=== PATIENT | male | born 1960 | race Caucasian/White ===

== ENCOUNTER 2016-07-18 11:20 | Emergency (ER) ==
[2016-07-18 12:08] LABS: MANUAL DIFF NEEDED? NO
[2016-07-18 12:14] LABS: BASO% 0.2 % (0.0-0.8); EOS# 0.03 X1000 (0.0-0.7); EOS% 0.3 % (0.0-10.0); HEMATOCRIT 51.1 % (42.0-52.0); HEMOGLOBIN 17.5 g/dL (14.0-18.0); IMM GRAN# 0.01 X1000 (0.0-0.04); IMM GRAN% 0.1 % (0.0-0.5); LYMPH# 1.97 X1000 (1.2-3.4); LYMPH% 17.7 % (20.5-51.1); MCH 30.4 PG (27-31); MCHC 34.2 g/dL (33-37); MCV 88.9 FL (81-99); MONO# 0.91 X1000 (0.11-0.59); MONO% 8.2 % (1.7-9.3); MPV 9.9 FL (7.4-10.4); NEUT% 73.5 % (42.2-75.2); PLT 388 X1000 (130-400); RBC 5.75 XMIL (4.7-6.1)
[2016-07-18 12:33] LABS: AGAP 14; ALBUMIN 4.7 g/dL (3.5-5.0); ALKALINE PHOSPHATASE 67 U/L (32-122); AMYLASE 44 U/L (20-200); BUN 25 mg/dL (8-22); CALCIUM 9.3 mg/dL (8.8-10.2); CHLORIDE 95 mmol/L (98-107); COSMO 273; GOT 17 U/L (10-34); GPT 21 U/L (10-44); LIPASE 19 U/L (13-60); SODIUM 133 mmol/L (136-145); TCO2 24 mmol/L (25-35); TOTAL PROTEIN 7.8 g/dL (6.3-8.3)
--- NOTE | 2016-07-18 12:43 | PROVIDER DOCUMENTATION ---
HPI-General Adult - General Chief Complaint: Abdominal Pain Stated Complaint: ABD PAIN Time Seen by Provider: 07/18/16 11:40 Source: patient Allergies/Adverse Reactions: Patient Allergies Allergy/AdvReac Type Severity Reaction Status Date / Time No Known Allergies Allergy Verified 07/18/16 11:30 - History of Present Illness -Gen Adult Nature of Presenting Problems: Pt. is 55 yom that presents with c/o abd pain with N/V for 5 days. Pt. reports he hasn't eaten or had any drink nor had a BM in 5 days. Pt. states he has a history of gastric ulcers. Pt. denies any fever or other symptoms. Location of Pain/Injury: reports: abdomen. denies: head, face, mouth, neck, chest, upper extremity, hand(s), back, pelvis, genitalia, lower extremity, feet , upper body, lower body, generalized Pain Radiation: reports: no radiation Quality of Pain: reports: aching. denies: burning, cramping, dull, fullness, indigestion, pressure, sharp, stabbing, tearing, throbbing, tightness Severity: reports: moderate. denies: mild, severe Onset/Duration: reports: gradual, 5 days ago Timing: reports: still present, constant. denies: improving, gone now, resolved prior to arrival, intermittent, changing over time, getting worse Context/Activities at Onset: reports: none. denies: recent emotional stress, recent physical stress, recent trauma history, possible bad food, cold exposure , out of country travel Modifying Factors: improves with: nothing Associated Symptoms: reports: nausea, vomiting. denies: anxiety, arm pain, back /neck pain, chest pain, constipation, cough, diaphoresis, diarrhea, dizziness, EENT symptoms, fatigue, fever/chills, genitourinary problems, headaches, heartburn, joint pain, loss of appetite, malaise, muscle aches, sinus congestion /drainage, rash, seizure, shortness of breath, sensory/motor loss, pain with inspiration, swelling/mass in abdomen, syncope, weakness, trouble walking Similar Symptoms Previously?: Yes Recently seen or treated by another doctor?: No Review of Systems - Adult - REVIEW OF SYSTEMS - ADULT Constitutional: reports: see HPI. denies: chills, fever, fatique Eyes: reports: see HPI. denies: discharge, blurred vision, double vision Ears, Nose, Mouth & Throat: reports: see HPI. denies: ear discharge, ear pain, sinus problem, nose pain, loose teeth, mouth/dental pain Cardiovascular: reports: see HPI. denies: chest pain, irregular heart rate, orthopnea Respiratory: reports: see HPI. denies: chronic cough, cough, dyspnea on exertion, pleurisy, shortness of breath, wheezing Gastrointestinal: reports: see HPI, abdominal pain, nausea, vomiting. denies: hematemesis, diarrhea, difficulty swallowing Genitourinary: reports: see HPI. denies: dysuria, discharge, flank pain, hematuria, hesitency, urgency Musculoskeletal: reports: see HPI. denies: bone pain, back pain, joint pain, muscle aches, neck pain Integumentary: reports: see HPI. denies: hives, hair loss, itching, rash, skin thickening Neurological: reports: see HPI. denies: ataxia, headache/migraines, paresthesia , seizure, tremors Psychiatric: reports: see HPI. denies: anxiety, depression, emotional problems , insomnia, panic attacks, suicidal thoughts Past History - Adult - PAST MEDICAL HISTORY-ADULT Review of Records: reports: Old Records Reviewed, Nursing Assessment Review, Medications Reviewed, Social history reviewed & non-contributory. Physical Exam-General - PHYSICAL EXAM-ADULT Initial Vital Signs Reviewed: Yes - CONSTITUTIONAL General Appearance: alert, mild distress, thin. negative: obese, anxious, lethargic, slow to respond, obtunded, combative - EYES Eyes: PERRL/EOMI, pink conjunctivae. negative: conjuctival exudate, scleral icterus, subconjunctival hemorrhage - HEAD, EARS, NOSE, MOUTH & THROAT HENMT: normocephalic/atraumatic, moist mucous membranes. negative: angioedema, frontal tenderness, maxillary tenderness - NECK Neck: non-tender, full range of motion, supple, normal inspection. negative: lymphadenopathy, trachial deviation, thyromegaly - RESPIRATORY Respiratory: lungs clear, normal breath sounds. negative: crackles, rales, rhonchi, stridor, wheezing - CARDIOVASCULAR Cardiovascular: normal peripheral pulses, regular rate, rhythm, no edema, no JVD , no murmur. negative: friction rub, irregularly irregular - CHEST (BREASTS) Chest/Breast: deferred - GASTROINTESTINAL (ABDOMEN) Abdominal Exam: normal bowel sounds, soft, tenderness (diffusely tender). negative: hernia, mass - GENITOURINARY Male Genitalia: deferred Rectal Exam: deferred Hemoccult Exam: deferred - LYMPHATIC Lymphatic: no adenopathy. negative: axilla node tender, cervical node tenderness - MUSCULOSKELETAL Back Exam: normal inspection, no CVA tenderness, no vertebral tenderness. negative: ecchymosis, muscle spasm, vertebral tenderness Extremity: normal range of motion, non-tender, normal gait, normal inspection. negative: erythema, pedal edema, tenderness Peripheral Pulses: radial (R): 2+, radial (L): 2+ - SKIN Integumentary: normal color, normal turgor, warm/dry. negative: cyanosis, diaphoresis, ecchymosis, erythema, jaundice, mottled, pallor, petechiae, purpura , rash, swelling, tenderness - NEUROLOGIC Neurologic: grossly normal, no motor/sensory deficits. negative: aphasia, facial droop, focal weakness, motor weakness, sensory deficit - PSYCHIATRIC Psych/Mental Status: normal mood/affect, normal thought content, normal thought process, oriented x 3. negative: anxious, paranoid, tearful Progress - PLAN OF CARE/RESULTS Progress/Plan/Lab Results: Discussed results and plan of care with patient. Patient agrees with plan and verbalizes understanding. Vital Signs Temp Pulse Pulse Pulse Pulse Resp BP 07/18/16 11:40 68 75 59 L 07/18/16 11:27 97.8 F 78 18 121/86 BP BP BP 07/18/16 11:40 139/100 134/95 138/80 07/18/16 11:27 No Known Allergies Allergy (Verified 07/18/16 11:30) No Home Medications 07/18/16 Dietary Diet NPO Start SatJul 18 1130 Laboratory 07/18/16 07/18/16 07/18/16 13:00 12:00 12:00 WBC 11.16 H RBC 5.75 Hgb 17.5 Hct 51.1 MCV 88.9 MCH 30.4 MCHC 34.2 RDW Std Deviation 12.9 Plt Count 388 MPV 9.9 Immature Gran % (Auto) 0.1 Neut % (Auto) 73.5 Lymph % (Auto) 17.7 L [place] % (Auto) 8.2 Eos % (Auto) 0.3 Baso % (Auto) 0.2 Immature Gran # (Auto) 0.01 Neut # (Auto) 8.22 H Lymph # (Auto) 1.97 [place] # (Auto) 0.91 H Eos # (Auto) 0.03 Baso # (Auto) 0.02 Sodium 133 L Potassium 4.0 Chloride 95 L Carbon Dioxide 24 L Anion Gap 14 BUN 25 H Creatinine 0.8 Estimated GFR/1.73 m2 > 60 BUN/Creatinine Ratio 31 Glucose 143 H Calculated Osmolality 273 Calcium 9.3 Total Bilirubin 0.90 AST 17 ALT 21 Alkaline Phosphatase 67 Total Protein 7.8 Albumin 4.7 Globulin 3.0 Albumin/Globulin Ratio 2.0 Amylase 44 Lipase 19 Urine Source CLEAN CATCH Urine Color YELLOW Urine Clarity SLIGHTLY CLOUDY A Urine pH 5.0 Ur Specific [place] 1.020 Urine Protein TRACE A Urine Ketones TRACE Urine Blood NEGATIVE Urine Nitrite NEGATIVE Urine Bilirubin NEGATIVE Urine Urobilinogen 1+(1 mg/dL) Urine Microscopic RBC Not Reportable Urine WBC TRACE A Urine Microscopic WBC <10 Ur Epithelial Cells <10 Urine Bacteria 1+ Urine Glucose NEGATIVE Orders Category Date Time Status NPO Diet 07/18/16 11:30 Active FLAT/UPRIGHT ABD/1 VIEW CHEST [RAD] Stat Exams 07/18/16 11:31 Taken AMYLASE [CHEM] Stat Lab 07/18/16 12:00 Completed CBC WITH ELECTRONIC DIFF [HEME] Stat Lab 07/18/16 12:00 Completed COMPREHENSIVE METABOLIC PANEL [CHEM] Stat Lab 07/18/16 12:00 Completed LIPASE [CHEM] Stat Lab 07/18/16 12:[address] W/POSS RFLX CULT [URINALYSIS] Stat Lab 07/18/16 13:00 Completed URINE CULTURE [RM] Routine Lab 07/18/16 13:23 Ordered Omeprazole [Prilosec] Med 07/18/16 13:30 Discontinued 20 mg PO NOW ONE Laboratory Tests 07/18/16 07/18/16 07/18/16 12:00 12:00 13:00 WBC 11.16 H RBC 5.75 Hgb 17.5 Hct 51.1 MCV 88.9 MCH 30.4 MCHC 34.2 RDW Std Deviation 12.9 Plt Count 388 MPV 9.9 Immature Gran % (Auto) 0.1 Neut % (Auto) 73.5 Lymph % (Auto) 17.7 L [place] % (Auto) 8.2 Eos % (Auto) 0.3 Baso % (Auto) 0.2 Immature Gran # (Auto) 0.01 Neut # (Auto) 8.22 H Lymph # (Auto) 1.97 [place] # (Auto) 0.91 H Eos # (Auto) 0.03 Baso # (Auto) 0.02 Sodium 133 L Potassium 4.0 Chloride 95 L Carbon Dioxide 24 L Anion Gap 14 BUN 25 H Creatinine 0.8 Estimated GFR/1.73 m2 > 60 BUN/Creatinine Ratio 31 Glucose 143 H Calculated Osmolality 273 Calcium 9.3 Total Bilirubin 0.90 AST 17 ALT 21 Alkaline Phosphatase 67 Total Protein 7.8 Albumin 4.7 Globulin 3.0 Albumin/Globulin Ratio 2.0 Amylase 44 Lipase 19 Urine Source CLEAN CATCH Urine Color YELLOW Urine Clarity SLIGHTLY CLOUDY A Urine pH 5.0 Ur Specific [place] 1.020 Urine Protein TRACE A Urine Ketones TRACE Urine Blood NEGATIVE Urine Nitrite NEGATIVE Urine Bilirubin NEGATIVE Urine Urobilinogen 1+(1 mg/dL) Urine Microscopic RBC Not Reportable Urine WBC TRACE A Urine Microscopic WBC <10 Ur Epithelial Cells <10 Urine Bacteria 1+ Urine Glucose NEGATIVE - XRAY 1 XRAY Study: Abdomen XRAY Interpretation: MICHAEL Ferreira) Departure - Departure Time of Disposition Order: 13:31 DIAGNOSIS: Abdominal pain Qualifiers: Abdominal location: generalized Qualified Code(s): R10.84 - Generalized abdominal pain Disposition: HOME 01 Certified Medical Emergency: Emergent Condition: Stable Additional Instructions: Follow up with primary care physician Follow up with edger technician Take medications as directed Return to ED for any concerns or worsening of symptoms ED Follow Up Instructions: You have been treated by a care provider in the Emergency Department. These instructions are being provided to you so you can have an understanding of how to care for yourself upon discharge. Upon discharge from the Emergency Department, you are responsible for making arrangements for follow-up care by a physician of your choice. Take all prescribed medications as directed. Return to the Emergency Department immediately for any new or worsening symptoms. You may call the Physician Referral phone number at [phone] to obtain a list of Physicians who are taking new patients. Prescriptions: Omeprazole 20 mg PO DAILY #20 tablet.dr Referrals: None,PCP [Primary Care Provider] - Shola Chambers MD [STAFF PHYSICIAN] - Attestation - Physician/ Mid-level Attestation Patient care was provided by Mid-level provider (VEGETABLE WASHING MACHINE OPERATOR/PA):: Yes Mid-level provider:: Francisco J Bond Mid-level documentation review:: The Mid-level provider documentation, treatment plan and medical decision making was reviewed by the physician who agrees with all treatment and medical decision making by the MLP.
[2016-07-18 13:07] LABS: URINE SOURCE CLEAN CATCH
[2016-07-18 13:22] LABS: BILIRUBIN URINE NEGATIVE (NEGATIVE); BLOOD URINE NEGATIVE (NEGATIVE); CLARITY SLIGHTLY CLOUDY (CLEAR); COLOR YELLOW; GLUCOSE URINE NEGATIVE (NEGATIVE); PROTEIN URINE TRACE mg/dL (NEGATIVE); URINE EPITHELIAL CELLS <10 /HPF (<10); URINE WBC <10 /HPF (<10)
[2016-07-18 13:23] LABS: LEUKOCYTES URINE TRACE (NEGATIVE); NITRITE URINE NEGATIVE (NEGATIVE); URINE CULTURE PL NEEDED? YES; UROBILINOGEN URINE 1+(1 mg/dL)
[2016-07-18] MEDS ORDERED: PRILOSEC PO ONE (13:30)
[2016-07-18 14:03] VITALS: BP 158/82
--- NOTE | 2016-07-18 14:04 | Diag Imaging Result Document ---
PROCEDURE NAME: FLAT/UPRIGHT ABD/1 VIEW CHEST - 07/18/2016 FRONTAL CHEST X-RAY AND TWO VIEWS OF THE ABDOMEN: COMPARISON: 01/09/2013. FINDINGS: The chest is clear. There is a large amount of stool in the ascending and transverse colon. No bowel obstruction or free air. No abnormal calcifications. IMPRESSION: Constipation.
== END 2016-07-18 14:20 | disposition home or self-care (01) ==
LOC: P.ED 11:20
DX: R10.84 Generalized abdominal pain (principal); R11.2 Nausea with vomiting, unspecified; R10.819 Abdominal tenderness, unspecified site
CPT/HCPCS: 36415; 74022; 80053; 81001; 82150; 83690; 85025; 87088; 99284